=== PATIENT | female | born 1960 | race Caucasian/White ===

== ENCOUNTER → 2019-11-16 12:44 | Outpatient (CLI) | payer OTHER, SELFPAY ==
--- NOTE | ~2019-11-16 | MM_ITS ---
EXAMINATION: MM screening moshe BI w joel HISTORY: Screening TECHNIQUE: Craniocaudal and mediolateral oblique 3-D tomosynthesis images were obtained and synthetic 2-D images were generated. CAD analysis was submitted and interpreted. COMPARISON: No prior mammogram is available for comparison at this institution. BREAST PARENCHYMAL COMPOSITION: There are scattered areas of fibroglandular density. FINDINGS: There is no evidence of suspicious mass, calcification, or architectural distortion to sugg est malignancy in either breast. There has been no suspicious interval change. IMPRESSION: 1. No mammographic evidence of malignancy. 2. Recommend routine screening mammography in one year. BI-RADS Category 1: Negative Reviewed, dictated and finalized at location A.
== END ==
PROVIDERS: PCP Family Medicine; Visit Provider Family Medicine
DX: Z12.31 Encounter for screening mammogram for malignant neoplasm of breast (principal)
CPT/HCPCS: 77063; 77067

== ENCOUNTER 2019-11-19 15:02 | Outpatient (CLI) | payer OTHER, SELFPAY ==
--- NOTE | ~2019-11-19 | US_ITS ---
US thyroid INDICATION: Twain thyroidism TECHNIQUE: Real-time sonographic images of the thyroid gland were obtained. COMPARISON: No prior studies for comparison. FINDINGS: The right thyroid lobe measures 3.8 x 1.6 x 1.9 cm. The left thyroid lobe measures 2.5 x 0 .84 x 0.7 cm. There is heterogeneous echotexture and echogenicity throughout the thyroid gland. No di screte nodules identified. Normal vascular flow is present. IMPRESSION: 1. Mildly heterogeneous thyroid gland without discrete mass. Reviewed, dictated and finalized at location A.
== END 2019-11-19 15:03 | disposition home or self-care (01) ==
PROVIDERS: PCP Family Medicine; Visit Provider Family Medicine
DX: E03.9 Hypothyroidism, unspecified (principal); E04.1 Nontoxic single thyroid nodule
CPT/HCPCS: 76536

== ENCOUNTER 2022-04-07 21:19 | Emergency (ER) | payer BC, SELFPAY ==
--- NOTE | ~2022-04-07 | XR_ITS ---
EXAMINATION: XR chest 2V Exam Date/Time: 04/07/2022 21:46 TOWER TRUCK DRIVER HISTORY: Cp, SOB, CHEST PAIN CENTER OF CHEST 2 WEEKS, HTN Comparison: 09/08/2014. RESULT: Lines, tubes, and devices: Cholecystectomy clips. Lungs and pleura: Clear. Cardiomediastinal silhouette: Stable. Other: No acute osseous or upper abdominal finding. IMPRESSION: No acute cardiopulmonary process. Reviewed, dictated and finalized at location K. R TRUCK DRIVER
--- NOTE | 2022-04-07 21:20 | ECG_ITS ---
Measurements Intervals [place] Rate: 89 P: 24 FL: 135 QRS: -7 QRSD: 83 T: 7 QT: 351 QTc: 428 Interpretive Statements SINUS RHYTHM LOW QRS VOLTAGE IN PRECORDIAL LEADS [QRS DEFLECTION < 1.0 mV IN CHEST LEADS] NO PREVIOUS ECG AVAILABLE FOR COMPARISON Electronically Signed On 04-08-2022 16:00:55 BINGO FLOATER by Pilar Donaldson M.D.
[2022-04-07 21:28] VITALS: BP 176/86; PULSE 93; RESP 18; TEMP 36.6; O2SAT 100
[2022-04-07 22:04] LABS: Basophils Percent Auto 0.3 % (0.2-1.2); Eosinophils Percent Auto 0.5 % (0-4.4); Hematocrit 43.4 % (37.0-47.0); Hemoglobin 14.3 g/dL (12.0-15.0); Immature Granulocyte Absolute 0.02 K/mm3 (0.00-0.031); Immature Granulocyte Percent A 0.3 % (0-0.5); Lymphocytes Absolute Auto 2.09 K/mm3 (0.9-3.2); Lymphocytes Percent Auto 26.7 % (18.3-44.2); Mean Corpuscular HGB Conc 32.9 g/dl (32-36); Mean Corpuscular Hemoglobin 30.6 pg (26-34); Mean Corpuscular Volume 92.7 fl (80-100); Mean Platelet Volume 10.3 fl (7.4-10.4); Monocytes Absolute Auto 0.8 K/mm3 (0.1-0.6); Monocytes Percent Auto 10.4 % (2.6-8.5); Neutrophils Absolute Auto 4.8 K/mm3 (1.3-6.7); Neutrophils Percent Auto 61.8 % (45.5-73.1); Platelet Count Result 323 k/mm3 (150-375); Red Blood Count 4.68 M/mm3 (4.2-5.4); Red Cell Distribution Width 11.8 % (11.5-14.5); White Blood Count 7.8 K/mm3 (4.5-10.0)
[2022-04-07 22:17] LABS: Alanine Aminotransferase 32 U/L (6-35); Alkaline Phosphatase 66 U/L (38-126); Anion Gap 8 mmol/L (8-16); Aspartate Amino Transferase 42 U/L (14-36); Bilirubin,Total 0.7 mg/dL (0.2-1.3); Blood Urea Nitrogen 14 mg/dL (7-17); Calcium 9.8 mg/dL (8.4-10.2); Carbon Dioxide 29 mmol/L (22-30); Chloride 102 mmol/L (98-107); Estimated CRCL calculation 56 ml/min; Estimated Glomerular Filt Rate > 60; Glucose 135 mg/dL (65-110); Lipase 311 U/L (23-300); Potassium 4.3 mmol/L (3.4-5.0); Prothrombin Time 12.8 Seconds (11.1-14.7); Sodium 139 mmol/L (137-145)
[2022-04-07 22:18] LABS: Partial Thromboplastin Time 29.8 SECONDS (22.3-36.8)
[2022-04-07 22:43] VITALS: O2SAT 98
[2022-04-07 22:47] LABS: Troponin I < 0.012 ng/mL (0.000-0.034)
--- NOTE | 2022-04-07 22:57 | ED.CHESTPAIN ---
HPI - Chest Pain General Chief Complaint: Chest Pain Stated Complaint: Chest pain, SOB Time Seen by Provider: 04/07/22 22:38 History of Present Illness HPI narrative: This is a 61-year-old female with past medical history of OR (approximately 12 years ago) who presents to the emergency department complaining of chest pain for the past several days associated with some dyspnea on exertion. Patient states the pain is substernal, described as sharp and pressure-like, without radiation and no consistent aggravating or alleviating factors. She noted the other day after climbing the stairs she had dyspnea and worsening chest pain that improved with rest. She denies any nausea or vomiting or other changes. She states this different and much less intense than her pain experienced with her prior OR. She states she was diagnosed with COVID approximately 2 months ago. Related Data Home Medications Medication Instructions Recorded Confirmed aspirin 81 mg tablet,delayed 81 mg PO DAILY 03/11/21 10/15/21 release (Adult Aspirin Regimen) Allergies Allergy/AdvReac Type Severity Reaction Status Date / Time No Known Allergies Allergy Verified 10/15/21 15:55 Review of Systems Review of Systems: CONSTITUTIONAL: Denies fever, chills, or sweats. EYES: Denies visual changes, redness, or discharge. ENT: Denies rhinorrhea, congestion, sore throat, or otalgia. CARDIOVASCULAR: Chest pain denies palpitations, or edema. RESPIRATORY: Intermittent dyspnea on exertion denies cough GASTROINTESTINAL: Denies abdominal pain, nausea, vomiting, or diarrhea. GENITOURINARY: Denies dysuria or hematuria. SKIN: Denies rash or itching. MUSCULOSKELETAL: Denies back pain, joint pain, or myalgia. NEUROLOGIC: Denies headache, numbness, dizziness, or weakness. PSYCHIATRIC: Denies anxiety or depression. [facility] Past Medical History Medical History (Updated 04/08/22 @ 03:35 by Lawson Gutierrez MD) COVID 12.4.2020 Diverticulitis of colon (without mention of hemorrhage) Essential hypertension Hypothyroidism (acquired) Mixed hyperlipidemia Old myocardial infarction Surgical History Surgical History History of cholecystectomy History of hysterectomy Family History Family History Father Diabetes mellitus Family history of elevated blood lipids Grandparent Family history of elevated blood lipids Mother Family history of elevated blood lipids Other Hypertension Social History Social History Smoking status: Never smoker Alcohol intake: never Exam Narrative: GENERAL: Well-developed, well-nourished, and in no acute distress. HEAD: Normocephalic, atraumatic. EYES: PERRLA and EOMI. ENT: Nares clear, no rhinorrhea or epistaxis. Mucous membranes moist. Oropharynx without tonsillar hypertrophy exudate or other lesions. NECK: Supple. No adenopathy or masses. No carotid bruits or JVD CHEST: Clear to auscultation. No respiratory distress. No wheezes rales or rhonchi HEART: Regular rate and rhythm. No murmur heard. Normal peripheral pulses. ABDOMEN: Soft, nontender, nondistended, normal active bowel sounds. EXTREMITIES: Normal range of motion. No edema. SKIN: Warm, dry, no rash. NEURO: No focal deficits. Alert and oriented x3. PSYCH: Normal mood and affect. Course Course Emergency Course: :23 - CBC unremarkable. Chemistries demonstrate elevated blood glucose of 135 and a slightly elevated lipase of 311. With the patient's recent history of COVID, I obtained a D-dimer; after age-adjustment, it is not concerning for PE (Wells score 1.5 for tachycardia). Troponins negative x2. The patient's HEART score (given her history of OR) is 3. Chest x-ray is not concerning for acute cardiopulmonary process. Shared decision making had with the patient, management options including
[2022-04-07 23:01] VITALS: BP 121/78; PULSE 73; RESP 19; O2SAT 98
[2022-04-07 23:09] LABS: D Dimer 0.63 ug/mL (<0.48)
[2022-04-08 00:59] LABS: Troponin I < 0.012 ng/mL (0.000-0.034)
== END 2022-04-08 01:41 | disposition home or self-care (01) ==
PROVIDERS: Emergency Provider Preventive Medicine Aerospace Medicine; PCP Family Medicine
DX: R07.9 Chest pain, unspecified (principal); I10 Essential (primary) hypertension; I25.2 Old myocardial infarction; E03.9 Hypothyroidism, unspecified; E78.2 Mixed hyperlipidemia; Z86.16 Personal history of COVID-19; Z79.82 Long term (current) use of aspirin; Z90.710 Acquired absence of both cervix and uterus
CPT/HCPCS: 36415; 71046; 80053; 83690; 84484; 85025; 85380; 85610; 85730; 93005; 99284

== ENCOUNTER 2022-04-28 07:34 | Outpatient (CLI) | payer BC, SELFPAY ==
--- NOTE | 2022-04-28 07:46 | ECHO_ITS ---
Patient Info Name: Toya Yun Age: 61 years : 1960 Gender: Female Ht: 64 in Wt: 156 lbs BSA: 1.80 m2 HR: 61 bpm BP: 144 / 103 mmHg Technical Quality: Good Exam Date: 04/28/2022 7:54 AM Exam Location: [facility] Patient Status: Outpatient Admit Date: 04/28/2022 Staff Ordering Physician: Kayla Barros MD Radiology Receptionist: John Cano RDCS, RT Attending Provider: Kayla Barros MD Referring Physician: Papo SILVERIO; Exam Type: CA echo doppler color flow Study Info Indications R07.9 - Chest pain, unspecified Complete two-dimensional, color flow and Doppler transthoracic echocardiogram is performed. Strain analysis performed. Summary 1. Complete two-dimensional, color flow and Doppler transthoracic echocardiogram is performed. 2. Left ventricular chamber dimension is normal. 3. Left ventricular systolic function is normal, estimated at 60-65%. 4. The left ventricular diastolic function is abnormal. 5. E/e' 11 is mildly elevated. 6. Global longitudinal strain is normal at -22.5%. 7. No pulmonary hypertension, estimated pulmonary arterial systolic pressure is 31 mmHg. Left Ventricle E/e' 11 is mildly elevated. Global longitudinal strain is normal at -22.5%. Left ventricular chamber dimension is normal. Left ventricular systolic function is normal, estimated at 60-65%. The left ventricular diastolic function is abnormal. Right Ventricle Right ventricular systolic function is normal and with normal TAPSE 2.5 cm. Right ventricular chamber dimension is normal. Left Atria Left atrial chamber dimension is normal. Right Atria Right atrial chamber dimension is normal. Aortic Valve The aortic valve is trileaflet. There is no aortic valve stenosis. There is no aortic valve regurgitation. Pulmonic Valve There is no pulmonic regurgitation. Mitral Valve There is no mitral valve stenosis. There is no mitral valve regurgitation. Tricuspid Valve There is no tricuspid valve regurgitation. No pulmonary hypertension, estimated pulmonary arterial systolic pressure is 31 mmHg. Pericardium/Pleural There is no pericardial effusion. Inferior Vena Cava Normal inferior vena cava with >50% collapse upon inspiration consistent with normal right atrial pressure, 5 mmHg. Aorta The aortic root size at the sinus of Valsalva is normal. Left Ventricular Outflow Tract Name Value Normal LVOT Doppler LVOT Peak Gradient 4 mmHg LVOT Mean Gradient 2 mmHg LVOT VTI 25 cm LVOT VTI/AV VTI Ratio 0.8 Mitral Valve Name Value Normal MV Doppler MV Decel De [place] 567 cm/s2 MV PHT 58 ms MV Area (PHT) 3.8 cm2 4.0-5.0 MV Diastolic Function MV E Peak Ve
--- NOTE | 2022-04-28 07:47 | EST_ITS ---
Patient Info Name: Toya Yun Age: 61 years : 1960 Gender: Female Ht: 64 in Wt: 156 lbs BSA: 1.80 m2 Exam Date: 04/28/2022 8:49 AM Exam Location: [facility] Patient Status: Outpatient Admit Date: 04/28/2022 Staff Ordering Physician: Kayla Barros MD Finishing Inspector: John Cano RDCS, RT Attending Provider: DR. MARCUS Referring Physician: Papo SILVERIO; Exam Type: CA stress echo Study Info Indications R07.9 - Chest pain, unspecified Summary 1. 1. Negative Ministerio exercise stress test for ischemic ST changes by ECG criteria. 2. 2. Good functional capacity, achieving 8.9 METs of workload. 3. 3. Baseline hypertension. 4. 4. Appropriate HR response to exercise. 5. 5. Appropriate HR recovery at 1 minute post exercise. 6. 6. Negative stress echocardiogram for ischemia by wall motion analysis. 7. 7. Patient informed of the above results. Stress Echo Findings Left Ventricle Appropriate increase in LV endocadial thickening with systole. Appropriate augmentation of contractility with systole. No wall motion abnormality. Left Ventricle Normal LV systolic function, no wall motion abnormality. Protocol: Ministerio Stress ECG Details Stage: REST Duration (min): 0 min : 55 sec Speed (mph): 0.0 Grade (%): 0 HR (bpm): 66 SBP (mmHg): 141 DBP (mmHg): 78 METS: --- Stage: REST Duration (min): 19 min : 57 sec Speed (mph): 0.0 Grade (%): 0 HR (bpm): 71 SBP (mmHg): 141 DBP (mmHg): 78 METS: --- Stage: STAGE 1 Duration (min): 1 min : 0 sec Speed (mph): 1.7 Grade (%): 10 HR (bpm): 95 SBP (mmHg): 141 DBP (mmHg): 78 METS: --- Stage: STAGE 1 Duration (min): 2 min : 0 sec Speed (mph): 1.7 Grade (%): 10 HR (bpm): 101 SBP (mmHg): 141 DBP (mmHg): 78 METS: --- Stage: STAGE 1 Duration (min): 3 min : 0 sec Speed (mph): 1.7 Grade (%): 10 HR (bpm): 111 SBP (mmHg): 180 DBP (mmHg): 91 METS: --- Stage: STAGE 2 Duration (min): 1 min : 0 sec Speed (mph): 2.5 Grade (%): 12 HR (bpm): 125 SBP (mmHg): 180 DBP (mmHg): 91 METS: --- Stage: STAGE 2 Duration (min): 2 min : 0 sec Speed (mph): 2.5 Grade (%): 12 HR (bpm): 135 SBP (mmHg): 195 DBP (mmHg): 90 METS: --- Stage: STAGE 2 Duration (min): 3 min : 0 sec Speed (mph): 2.5 Grade (%): 12 HR (bpm): 139 SBP (mmHg): 195 DBP (mmHg): 90 METS: --- Stage: STAGE 3 Duration (min): 1 min : 0 sec Speed (mph): 3.4 Grade (%): 14 HR (bpm): 147 SBP (mmHg): 192 DBP (mmHg): 106 METS: --- Stage: STAGE 3 Duration (min): 1 min : 1 sec Speed (mph): 0.0 Grade (%): 0 HR (bpm): 147 SBP (mmHg): 192 DBP (mmHg): 106 METS: --- Stage: RECOVERY Duration (min): 0 min : 58 sec Speed (mph): 0.0 Grade (%): 0 HR (bpm): 108 SBP (mmHg): 192 DBP (mmHg): 106 METS: ---
== END 2022-04-28 07:35 | disposition home or self-care (01) ==
LOC: ANHCARD 07:37
PROVIDERS: PCP Family Medicine; Visit Provider Family Medicine
DX: R06.02 Shortness of breath (principal); I25.118 Atherosclerotic heart disease of native coronary artery with other forms of angina pectoris; I25.2 Old myocardial infarction
CPT/HCPCS: 93306; 93351

== ENCOUNTER → 2023-01-19 13:59 | Outpatient (CLI) | payer BC, SELFPAY ==
--- NOTE | ~2023-01-19 | MM_ITS ---
EXAMINATION: MM screening moshe BI w joel HISTORY: Screening mammogram TECHNIQUE: Craniocaudal and mediolateral oblique 3-D tomosynthesis images were obtained and synthetic 2-D images were generated. CAD analysis was submitted and interpreted. COMPARISON: 11/12/2019 bilateral screening mammogram BREAST PARENCHYMAL COMPOSITION: There are scattered areas of fibroglandular density. FINDINGS: There is no evidence of suspicious mass, calcification, or architectural distortion to sugg est malignancy in either breast. There has been no suspicious interval change. IMPRESSION: 1. No mammographic evidence of malignancy. 2. Recommend routine screening mammography in one year. BI-RADS Category 1: Negative Reviewed, dictated and finalized at location A.
== END ==
PROVIDERS: PCP Family Medicine; Visit Provider Family Medicine
DX: Z12.31 Encounter for screening mammogram for malignant neoplasm of breast (principal)
CPT/HCPCS: 77063; 77067

== ENCOUNTER 2023-05-18 12:41 | Outpatient (CLI) | payer BC, SELFPAY ==
[2023-05-18 14:13] LABS: Eosinophils Absolute Auto 0.1 K/mm3 (0-0.3); Eosinophils Percent Auto 1.8 % (0-4.4); Hematocrit 39.6 % (37.0-47.0); Immature Granulocyte Absolute 0.01 K/mm3 (0.00-0.031); Immature Granulocyte Percent A 0.3 % (0-0.5); Lymphocytes Absolute Auto 1.09 K/mm3 (0.9-3.2); Lymphocytes Percent Auto 27.7 % (18.3-44.2); Mean Corpuscular HGB Conc 32.8 g/dl (32-36); Mean Corpuscular Hemoglobin 30.2 pg (26-34); Mean Corpuscular Volume 92.1 fl (80-100); Mean Platelet Volume 10.9 fl (7.4-10.4); Monocytes Absolute Auto 0.6 K/mm3 (0.1-0.6); Monocytes Percent Auto 14.2 % (2.6-8.5); Neutrophils Absolute Auto 2.2 K/mm3 (1.3-6.7); Platelet Count Result 255 k/mm3 (150-375); Red Cell Distribution Width 11.7 % (11.5-14.5); White Blood Count 3.9 K/mm3 (4.5-10.0)
[2023-05-18 15:17] LABS: Vitamin D 25 Hydroxy 54.3 ng/mL
[2023-05-18 15:21] LABS: Anion Gap 11 mmol/L (8-16); Blood Urea Nitrogen 13 mg/dL (7-17); Calcium 9.9 mg/dL (8.4-10.2); Carbon Dioxide 25 mmol/L (22-30); Chloride 101 mmol/L (98-107); Cholesterol 222 mg/dL (0-200); Estimated Glomerular Filt Rate > 60; Glucose 82 mg/dL (65-110); HDL Direct 47 mg/dL; Potassium 5.3 mmol/L (3.4-5.0); Sodium 137 mmol/L (137-145); Triglycerides 126 mg/dL (<150)
[2023-05-18 15:33] LABS: LDL Cholesterol Direct 113 mg/dL
[2023-05-18 15:51] LABS: Thyroid Stimulating Hormone 0.352 uIU/mL (0.465-4.680)
== END 2023-05-18 12:42 | disposition home or self-care (01) ==
LOC: ANHGOSHLAB 12:43
PROVIDERS: PCP Family Medicine; Visit Provider Nurse Practitioner Family
DX: E03.9 Hypothyroidism, unspecified (principal); I10 Essential (primary) hypertension; E78.2 Mixed hyperlipidemia; E55.9 Vitamin D deficiency, unspecified
CPT/HCPCS: 36415; 80048; 80061; 82306; 84443; 85025

== ENCOUNTER 2024-10-10 10:24 | Outpatient (CLI) | payer BC, SELFPAY ==
--- OUTSIDE RECORDS SUMMARY | 2024-10-10 11:52 | XMS_ITS | Referral Summary ---
Author Organization [facility] [place] [address] Address [address] [place] [address] Care Team Providers Care Manager Resort Name Role Phone Kayla Barros MD Primary Care Provider + Allergies No known active allergies Medications aspirin 81 mg enteric coated tablet Take 81 mg by mouth daily Active carvediloL (COREG) 3.125 mg tablet TAKE 1 TABLET BY MOUTH EVERY 12 HOURS WITH FOOD 2 Active levothyroxine (SYNTHROID) 112 mcg tablet Take 112 mcg by mouth daily 2 Active lisinopriL (PRINIVIL,ZESTRIL ) 20 mg tablet Take 20 mg by mouth daily 2 Active naproxen (NAPROSYN) 500 mg tablet Take 500 mg by mouth 2 (two) times a day as needed 9 Active rosuvastatin (CRESTOR) 20 mg tablet Take 20 mg by mouth daily 2 Active traMADoL (ULTRAM) 50 mg tablet Take 50 mg by mouth every 6 (six) hours as needed 9 Active benzonatate (TESSALON) 200 mg capsuleIndication s:Acute non-recurrent pansinusitis Take 1 capsule (200 mg total) by mouth 3 (three) times a day as needed for cough 30 capsule 2 Active Active Problems No known active problems Social History Tobacco Use Types Packs/Day Years Used Date Smoking Tobacco: Never Smokeless Tobacco: Never Tobacco Cessation:Counseling Given: Not Answered Personal Safety Answer Date Recorded Getting School Help Needed Not on file 05/01 Comments Unknown Sex and Gender Information Value Date Recorded Sex Assigned at Not on file Legal Sex Female 5:24 PM CRANE OPERATOR Gender Identity Not on file Sexual Orientation Not on file Last Filed Vital Signs Vital Sign Reading Time Taken Comments Blood Pressure 167/98 03/27/2022 7:19 PM CRANE OPERATOR Pulse 79 03/27/2022 7:19 PM CRANE OPERATOR Temperature 36.8 C (98.3 F) 03/27/2022 7:19 PM CRANE OPERATOR Respiratory Rate 16 03/27/2022 7:19 PM CRANE OPERATOR Oxygen Saturation 99% 03/27/2022 7:19 PM CRANE OPERATOR Inhaled Oxygen Concentration - - Weight 71 kg (156 lb 8 oz) 03/27/2022 7:19 PM CS T Height - - Body Mass Index - - Plan of Treatment Not on file Insurance [employer] PPO [place] Care Teams Manager Resort Relationship Specialty Start Date End Date Kayla Barros MD PCP - General Family Medicine 01/25/17
--- OUTSIDE RECORDS SUMMARY | 2024-10-10 11:52 | XMS_ITS | Clinical Summary ---
Author Organization [facility] Address [address] [place] [address] Phone Care Team Providers Care Sweatband Maker Name Role Phone Kayla Barros MD Primary Care Provider [phone] Allergies No known active allergies Medications carvedilol (COREG) 3.125 MG Tablet Take 3.125 mg by mouth 2 times daily. Active lisinopril (PRINIVIL, ZESTRIL) 20 MG Tablet Take 20 mg by mouth daily. Active levothyroxine (SYNTHROID) 125 MCG Tablet Take 125 mcg by mouth daily. Active rosuvastatin (CRESTOR) 20 MG Tablet Take 20 mg by mouth daily. Active Aspirin 81 MG Tablet Take 81 mg by mouth daily. Active naproxen (NAPROSYN) 500 MG Tablet Take 1 Tab by mouth 2 times daily as needed for Moderate or more severe pain. 20 Tab 08/09/2018 Active traMADol (ULTRAM) 50 MG Tablet Take 1 Tab by mouth every 6 hours as needed for Moderate or more severe pain. 10 Tab 08/09/2018 Active Social History Tobacco Use Types Packs/Day Years Used Date Smoking Tobacco: Never Smokeless Tobacco: Never Alcohol Use Standard Drinks/Week Comments Yes 0 (1 standard drink = 0.6 oz pur e alcohol) Comments No Sex and Gender Information Value Date Recorded Sex Assigned at Not on file Legal Sex Female 11:40 PM CDT Gender Identity Not on file Sexual Orientation Not on file Last Filed Vital Signs Vital Sign Reading Time Taken Comments Blood Pressure 131/74 08/09/2018 3:00 PM CDT Pulse 69 08/09/2018 3:00 PM CDT Temperature 36.6 C (97.8 F) 08/09/2018 1:36 PM CDT Respiratory Rate 16 08/09/2018 3:00 PM CDT Oxygen Saturation 99% 08/09/2018 3:00 PM CDT Inhaled Oxygen Concentration - - Weight 67.1 kg (148 lb) 08/09/2018 1:36 PM CDT Height 162.6 cm (5' 4) 08/09/2018 1:36 PM CDT Body Mass Index 25.4 08/09/2018 1:36 PM CDT Plan of Treatment Health Maintenance Due Date Last Done Comments Hepatitis C Virus (HCV) Screening 1960 TdaP Immunization 1960 Cologuard 2006 Colonoscopy 2006 Colorectal Cancer Screening 2006 Immunochemical Fecal Occult Blood 2006 Pneumococcal Immunization (5 0+ years) (1 of 1 - PCV) 10/04/2011 Zoster Immunization (1 of 2) 10/04/2011 Respiratory Syncytial Virus (RSV) Immunization (Adult) (1 - Risk 60-74 years 1-dose series) 2021 SARS-COV-2 Immunization ( - 2023- season) 2023 Influenza Immunization (Seas on Ended) 2024 04/27/2018 Hepatitis B Immunization Aged Out No longer eligible based on patient's age to complete this topic Human Papillomavirus (HPV) Immunization Aged Out No longer eligible b ased on patient's age to complete this topic Meningococcal Immunization (ACWY) Aged Out No longer eligible based on patient's age to complete this topic Rotavirus Immunization Aged Out No lo nger eligible based on patient's age to complete this topic Insurance [facility] Care Teams Sweatband Maker Relationship Specialty Start Date End Date Kayla Barros MD PCP - General Family Medicine 08/09/18
--- OUTSIDE RECORDS SUMMARY | 2024-10-10 11:52 | XMS_ITS | Clinical Summary ---
Author Organization [facility] [place] [address] Address [address] [place] [address] Care Team Providers Care Medical Assistant Cardiology Name Role Phone Kayla Barros MD Primary [...] on file Legal Sex Female 5:24 PM OFFICE MANAGER Gender Identity Not on file Sexual Orientation Not on file Obstetrics History Last Filed Vital Signs Vital Sign Reading Time Taken Comments Blood Pressure 167/98 03/27/2022 7:19 PM OFFICE MANAGER Pulse 79 03/27/2022 7:19 PM OFFICE MANAGER Temperature 36.8 C (98.3 F) 03/27/2022 7:19 PM OFFICE MANAGER Respiratory Rate 16 03/27/2022 7:19 PM OFFICE MANAGER Oxygen Saturation 99% 03/27/2022 7:19 PM OFFICE MANAGER Inhaled Oxygen Concentration - - Weight 71 kg (156 lb 8 oz) 03/27/2022 7:19 PM CS T Height - - Body Mass Index - - Plan of Treatment Health Maintenance Due Date Last Done Comments Breast Cancer Screening-Mammogram 1960 Cervical Cancer Screening 1960 Colon Cancer Screening-Colonoscopy 1960 Depression Screening 1960 Hepatitis C Screening 1960 Hepatitis B Screening 10/04/1979 Regular Well Visit/Exam 18-64 10/04/1979 Zoster Vaccine (1 of 2) 10/04/2011 Influenza Vaccine (Season Ended) 2024 03/11/2021, 02/29/2020, 04/27/2018 DTaP/Tdap/Td Vaccine (2 - Td or Tdap) 10/16/2031 10/15/2021 Pneumococcal vaccine <65 Aged Out No longer eligible based on patient's age to complete this topic Insurance [employer] [place] Care Teams Medical Assistant Cardiology Relationship Specialty Start Date End Date Kayla Barros MD PCP - General Family Medicine 01/25/17
[2024-10-10 19:19] LABS: Influenza A QL RT-PCR Negative (Negative); Influenza B QL RT-PCR Negative (Negative); RSV RNA, RT-PCR Negative (Negative); SARS-CoV-2 RNA PCR Negative (Negative)
== END 2024-10-10 10:25 | disposition home or self-care (01) ==
LOC: ANHGOSHLAB 10:25
PROVIDERS: PCP Family Medicine; Visit Provider Family Medicine
DX: B34.9 Viral infection, unspecified (principal); Z20.822 Contact with and (suspected) exposure to COVID-19
CPT/HCPCS: 87637

== ENCOUNTER 2024-11-04 15:41 | Emergency (ER) | payer BC, SELFPAY ==
--- NOTE | ~2024-11-04 | CT_ITS ---
CT abdomen pelvis w con Ordering provider: Yadira Castro PA-C History: 64 years Female with . lower abd pain, pressure in RUQ . Comparison: November 20, 2014 Technique: CT abdomen and pelvis with IV and without oral contrast. Automated exposure control and it erative reconstruction technique were employed. The dose-length product was 416.22 mGy-cm. 100 mL Omn ipaque 350 was given IV. Findings: VISUALIZED LOWER CHEST: Normal. UPPER ABDOMINAL ORGANS: Liver: Normal. Slightly prominent intrahepatic ducts. Prominent CBD measuring 1 cm. Gallbladder: Status post cholecystectomy. Spleen: Normal. Stomach/duodenum: Small sliding hiatus hernia. Duodenal diverticulum is seen. Pancreas: Normal. Adrenals: Normal. Kidneys: Multiple left kidney cysts with the largest measures 1.3 cm.] PELVIC ORGANS: The bladder is underfilled with thickened wall. Evaluation for cystitis advised BOWEL AND MESENTERY: Colon: Diverticulitis is seen in the sigmoid colon with surrounding fat stranding. No definite air or abscess formation seen. No evidence of diverticulitis. Small Bowel: Normal. No obstruction. Peritoneum/mesentery: No free air. Minimal free fluid is seen in the left side of the pelvis and righ t paracolic gutter. No mesenteric lymphadenopathy. RETROPERITONEUM: Mild atheromatous disease of the abdominal aorta. No retroperitoneal lymphadenopat hy. MUSCULOSKELETAL: Superficial soft tissues: The superficial soft tissues are normal. Bones: Age appropriate degenerative changes of the spine. IMPRESSION: 1. Diverticulitis of the sigmoid colon with no free air or abscess formation. 2. Sliding hiatus hernia. 3. Left renal cysts. Reviewed, dictated and finalized at location A.
--- OUTSIDE RECORDS SUMMARY | 2024-11-04 15:43 | XMS_ITS | Clinical Summary ---
Author Organization [facility] Address [address] [place] [address] Phone Care Team Providers Care Vocational Rehabilitation Specialist Name Role Phone Kayla Barros MD Primary Care Provider [phone] Allergies No known active allergies Medications carvedilol [...] 60-74 years 1-dose series) 2021 SARS-COV-2 Immunization (1 - 2023- season) 2023 Influenza Immunization (#1) 2024 04/27/2018 Hepatitis B Immunization Aged Out [...] patient's age to complete this topic Insurance [facility] Care Teams Vocational Rehabilitation Specialist Relationship Specialty Start Date End Date Kayla Barros MD PCP - General Family Medicine 08/09/18
[2024-11-04 15:45] VITALS: BP 170/107; PULSE 112; RESP 20; TEMP 36.7; O2SAT 99
[2024-11-04 16:01] LABS: Hematocrit 43.3 % (37.0-47.0); Hemoglobin 14.2 g/dL (12.0-15.0); Immature Granulocyte Percent A 0.3 % (0-0.5); Lymphocytes Absolute Auto 0.82 K/mm3 (0.9-3.2); Mean Corpuscular HGB Conc 32.8 g/dl (32-36); Mean Corpuscular Hemoglobin 30.1 pg (26-34); Mean Corpuscular Volume 91.9 fl (80-100); Nucleated Red Blood Cells Absolute Auto 0.000 K/mm3 (0.0-0.012); Nucleated Red Blood Cells Perc 0.0 % (0.0-0.2); Platelet Count Result 297 k/mm3 (150-375); Red Blood Count 4.71 M/mm3 (4.2-5.4); White Blood Count 11.8 K/mm3 (4.5-10.0)
[2024-11-04 16:04] LABS: Add Urine Microscopic? NO; Appearance Urine Clear (Clear); Glucose Urine UA Negative (Negative); Leukocyte Esterase Ur Negative LEU/UL (Negative); Nitrate Urine Negative (Negative); Specific Grav Ur 1.004 (1.001-1.035)
--- OUTSIDE RECORDS SUMMARY | 2024-11-04 16:04 | XMS_ITS | Clinical Summary ---
Author Organization [facility] Address [address] [place] [address] Phone Care Team Providers Care Paper Cone Maker Name Role Phone Kayla Barros MD Primary Care Provider [phone] Allergies No known active allergies Medications carvedilol [...] age to complete this topic Insurance [facility] Care Teams Paper Cone Maker Relationship Specialty Start Date End Date Kayla Barros MD PCP - General Family Medicine 08/09/18
--- OUTSIDE RECORDS SUMMARY | 2024-11-04 16:04 | XMS_ITS | Clinical Summary ---
Author Organization [facility] [place] [address] Address [address] [place] [address] Care Team Providers Care Head Sugar Reprocess Operator Name Role Phone Kayla Barros MD Primary [...] on file Legal Sex Female 5:24 PM GROOVING MACHINE OPERATOR Gender Identity Not on file Sexual Orientation Not on file Obstetrics History Last Filed Vital Signs Vital Sign Reading Time Taken Comments Blood Pressure 167/98 03/27/2022 7:19 PM GROOVING MACHINE OPERATOR Pulse 79 03/27/2022 7:19 PM GROOVING MACHINE OPERATOR Temperature 36.8 C (98.3 F) 03/27/2022 7:19 PM GROOVING MACHINE OPERATOR Respiratory Rate 16 03/27/2022 7:19 PM GROOVING MACHINE OPERATOR Oxygen Saturation 99% 03/27/2022 7:19 PM GROOVING MACHINE OPERATOR Inhaled Oxygen Concentration - - Weight [...] Vaccine (1 of 2) 10/04/2011 Influenza Vaccine (#1) 2024 1, 02/29/2020, 04/27/2018 DTaP/Tdap/Td Vaccine (2 - Td or Tdap) 10/16/2031 10/15/2021 Pneumococcal vaccine <65 Aged Out No longer eligible based on patient's age to complete this topic Insurance [employer] [place] Care Teams Head Sugar Reprocess Operator Relationship Specialty Start Date End Date Kayla Barros MD PCP - General Family Medicine 01/25/17
--- OUTSIDE RECORDS SUMMARY | 2024-11-04 16:04 | XMS_ITS | Referral Summary ---
Author Organization [facility] [place] [address] Address [address] [place] [address] Care Team Providers Care Senior Chemical Engineer Name Role Phone Kayla Barros MD Primary [...] on file Legal Sex Female 5:24 PM TERMINAL CLERK Gender Identity Not on file Sexual Orientation Not on file Last Filed Vital Signs Vital Sign Reading Time Taken Comments Blood Pressure 167/98 03/27/2022 7:19 PM TERMINAL CLERK Pulse 79 03/27/2022 7:19 PM TERMINAL CLERK Temperature 36.8 C (98.3 F) 03/27/2022 7:19 PM TERMINAL CLERK Respiratory Rate 16 03/27/2022 7:19 PM TERMINAL CLERK Oxygen Saturation 99% 03/27/2022 7:19 PM TERMINAL CLERK Inhaled Oxygen Concentration - - Weight 71 kg (156 lb 8 oz) 03/27/2022 7:19 PM CS T Height - - Body Mass Index - - Plan of Treatment Not on file Insurance [employer] [place] Care Teams Senior Chemical Engineer Relationship Specialty Start Date End Date Kayla Barros MD PCP - General Family Medicine 01/25/17
[2024-11-04 16:19] LABS: Alanine Aminotransferase 29 U/L (6-35); Albumin Level 4.9 g/dL (3.5-5.1); Alkaline Phosphatase 59 U/L (38-126); Anion Gap 12 mmol/L (4-12); Aspartate Amino Transferase 41 U/L (14-36); Bilirubin,Total 1.0 mg/dL (0.2-1.3); Blood Urea Nitrogen 9 mg/dL (7-17); Calcium 10.4 mg/dL (8.4-10.2); Carbon Dioxide 27 mmol/L (22-30); Chloride 98 mmol/L (98-107); Estimated CRCL calculation 51 ml/min; Estimated Glomerular Filt Rate 58; Glucose 115 mg/dL (65-110); Lipase 153 U/L (23-300); Potassium 4.2 mmol/L (3.4-5.0); Sodium 137 mmol/L (137-145); Total Protein 9.2 g/dL (6.3-8.2)
[2024-11-04 16:25] VITALS: PULSE 85; RESP 14; O2SAT 98
[2024-11-04 16:30] VITALS: BP 117/80; PULSE 78; RESP 13; O2SAT 98
[2024-11-04 16:31] VITALS: PULSE 79; RESP 14; O2SAT 100
--- NOTE | 2024-11-04 16:36 | ECG_ITS ---
Test Date: 2024-11-04 16:54:27 Measurements Intervals [place] Rate: 78 P: -3 ME: 149 QRS: 9 QRSD: 87 T: 8 QT: 368 QTc: 421 Interpretive Statements SINUS RHYTHM No previous ECG available for comparison Electronically Signed On 11-05-2024 15:51:53 CDT by Wilbur Valdez M.D.
[2024-11-04 16:55] VITALS: BP 120/73; PULSE 78; RESP 17; O2SAT 99
[2024-11-04 17:07] LABS: INR 0.9; Prothrombin Time 12.5 Seconds (11.1-14.7)
[2024-11-04 17:08] LABS: Partial Thromboplastin Time 28.0 Seconds (22.3-36.8)
--- NOTE | 2024-11-04 17:23 | ED_ITS ---
HPI - Abdominal Pain General Chief Complaint: Abdominal Pain Stated Complaint: RUQ pressure Time Seen by Provider: 11/04/24 15:57 Source: patient Mode of arrival: ambulatory Limitations: no limitations History of Present Illness HPI narrative: Patient is a 64-year-old female, with PMH of cholecystectomy, who presents the ED with report of abdominal pain. Patient reports over the past 4 weeks, she has been having pressure throughout her right upper abdomen, below her R breast. Denies actual pain. States it is fairly constant, but seems to be worse with eating or drinking. Denies shortness of breath or anterior chest pain. She was evaluated for this a few weeks ago while on vacation in [place] and had an overall reassuring workup, but was told she had diverticulitis and was started on Augmentin for this. She does have history of previous diverticulitis. States this pressure has been consistent since then. This morning around 3:00 a.m., she woke up with pain throughout her lower abdomen. Does state this feels similar to her previous diverticulitis. Reports loose stool, but denies diarrhea, rectal bleeding, melena, constipation, nausea, vomiting, fevers. Denies dysuria, hematuria, frequency. Related Data Home Medications ?Medication ?Instructions ?Recorded ?Confirmed ?Last Taken ?Type aspirin 81 mg tablet,delayed 81 mg PO DAILY 03/11/21 10/10/24 Unknown History release (Adult Aspirin Regimen) Allergies Allergy/AdvReac Type Severity Reaction Status Date / Time No Known Allergies Allergy Verified 11/04/24 15:52 Review of Systems 2 Review of Systems: All systems reviewed & are unremarkable except as noted in HPI. All systems reviewed & are unremarkable except as noted in HPI and below PMFSH Past Medical History Medical History Atypical chest pain COVID 12.4.2020 Diverticulitis of colon (without mention of hemorrhage) Essential hypertension Mixed hyperlipidemia Old myocardial infarction Hypothyroidism (acquired) Surgical History Surgical History History of hysterectomy History of cholecystectomy Family History Family History Father Diabetes mellitus Family history of elevated blood lipids Grandparent Family history of elevated blood lipids Mother Family history of elevated blood lipids Other Hypertension Social History Social History Smoking status: Never smoker Alcohol intake: current Drinks per week: 1 Substance use: never Substance use type: does not use Do You Feel Safe in your Home?: Yes Lack of Transportation: No Lack of Food: Never True Current Housing: I Have Housing Concerned About Future Housing: No Difficulty Paying Gas/Electric Bills: No Difficulty Paying for Meds: No Currently Unemployed: No Education: High School Diploma/GED Difficulty w/ Childcare or Family Care: No Exam 2 Narrative: GENERAL: Well appearing, well-nourished, non-toxic, in no acute distress. HEAD: Normocephalic, atraumatic. RESPIRATORY: Airway patent, respirations nonlabored. Clear to auscultation bilaterally, no rales, rhonchi, wheezing. CARDIOVASCULAR: Regular rate and rhythm without murmurs, rubs, or gallops. ABDOMINAL: Soft, mild diffuse tenderness throughout left lower quadrant, suprapubic region, left upper quadrant, nondistended. Normoactive BS. MUSCULOSKELETAL: Moves all extremities. No gross deformities. No significant reproducible tenderness along right upper chest wall. SKIN: Warm, dry, normal color. NEURO: A&O X3. Speech clear. Cranial nerves II-XII grossly intact. Steady gait. No ataxic movements. PSYCHIATRIC: Appropriate mood and affect. Normal interaction. Course Vital Signs Vital signs: Vital Signs Temperature 98.0 F 11/04/24 15:45 Pulse Rate 112 H 11/04/24 15:45 Respiratory Rate 20 11/04/24 15:45 Blood Pressure 170/107 H 11/04/24 15:45 Pulse Oximetry 99 11/04/24 15:45 Oxygen Delivery Room Air 11/04/24 15:45 Temperature 98.0 F 11/04/24 15:45 Pulse Rate 74 11/04/24 18:21 Respiratory Rate 20 11/04/24 18:21 Blood Pressure 103/67 11/04/24 18:21 Pulse Oximetry 100 11/04/24 18:21 Oxygen Delivery Room Air 11/04/24 15:45 MDM - Abdominal Pain MDM Narrative Medical decision making narrative: Patient presented to ED with lower abdominal pain that began this morning, history of previous diverticulitis, also reports pressure in right upper quadrant, right breast region for the past 4 weeks. Patient was initially tachycardic upon arrival to the ED, however this was improved by the time of my evaluation. She is afebrile here. In no acute distress. Cbc with white blood cell count of 11.8. Neutrophil predominance. No bandemia. CMP fairly unremarkable. Stable kidney function. Stable electrolytes. Normal LFTs and lipase. EKG with sinus rhythm, no concerning ST changes. Troponin undetectable. D-dimer was within normal range. Suspicion for PE. UA is completely clear. CT scan of abdomen/pelvis was obtained and shows evidence of diverticulitis of sigmoid colon, no perforation or abscess. Consistent with clinical picture. Discussed lab and imaging findings with patient. Discussed starting on Cipro/Flagyl. She is in agreement this plan. Feels comfortable going home. Offered pain medication for home, however patient politely declined. Recommended close follow-up with PCP for further evaluation of diverticulitis as well as right upper quadrant pain. Unclear etiology of this, but no concerning findings on workup here today. Given strict return precautions. Patient voiced understanding. Discharged in stable condition. Medical Records Attestation: I reviewed the patient's medical records. Lab Data Attestation: I reviewed the patient's lab results. 11/04/24 15:54 11/04/24 15:54 Labs: Lab Results 11/04/24 Range/Units 15:54 WBC 11.8 H (4.5-10.0) K/mm3 RBC 4.71 (4.2-5.4) M/mm3 Hgb 14.2 (12.0-15.0) g/dL Hct 43.3 (37.0-47.0) % MCV 91.9 (80-100) fl MCH 30.1 (26-34) pg MCHC 32.8 (32-36) g/dl RDW 11.9 (11.5-14.5) % Plt Count 297 (150-375) k/mm3 MPV 10.5 H (7.4-10.4) fl Immature Gran % (Auto) 0.3 (0-0.5) % Neut % (Auto) 83.4 H (45.5-73.1) % Lymph % (Auto) 6.9 L (18.3-44.2) % [place] % (Auto) 9.1 H (2.6-8.5) % Eos % (Auto) 0.2 (0-4.4) % Baso % (Auto) 0.1 L (0.2-1.2) % Lymph # (Auto) 0.82 L (0.9-3.2) K/mm3 [place] # (Auto) 1.1 H (0.1-0.6) K/mm3 Eos # (Auto) 0.0 (0-0.3) K/mm3 Baso # (Auto) 0.0 (0.0-0.1) K/mm3 Abs Immat Gran (auto) 0.04 H (0.00-0.031) K/mm3 Absolute Neuts (auto) 9.9 H (1.3-6.7) K/mm3 Absolute Nucleated RBC 0.000 (0.0-0.012) K/mm3 Nucleated RBC % 0.0 (0.0-0.2) % PT 12.5 (11.1-14.7) Seconds INR 0.9 APTT 28.0 (22.3-36.8) Seconds D-Dimer 0.44 (<0.48) ug/mL Sodium 137 (137-145) mmol/L Potassium 4.2 (3.4-5.0) mmol/L Chloride 98 (98-107) mmol/L Carbon Dioxide 27 (22-30) mmol/L Anion Gap 12 (4-12) mmol/L BUN 9 (7-17) mg/dL Creatinine 0.97 (0.7-1.0) mg/dL Estim Creat Clear Calc 51 ml/min Estimated GFR 58 L (59 - ) Glucose 115 H (65-110) mg/dL Calcium 10.4 H (8.4-10.2) mg/dL Total Bilirubin 1.0 (0.2-1.3) mg/dL AST 41 H (14-36) U/L ALT 29 (6-35) U/L Alkaline Phosphatase 59 (38-126) U/L Troponin I < 0.012 (0.000-0.034) ng/mL Total Protein 9.2 H (6.3-8.2) g/dL Albumin 4.9 (3.5-5.1) g/dL Lipase 153 (23-300) U/L Urine Color Yellow (Yellow) Urine Appearance Clear (Clear) Urine pH 5.5 (5.0-9.0) Ur Specific [place] 1.004 (1.001-1.035) Urine Protein Negative (Negative) mg/dL Urine Glucose (UA) Negative (Negative) mg/dL Urine Ketones Negative (Negative) mg/dL Ur Blood (Man) Negative (Negative) Urine Nitrate Negative (Negative) Urine Bilirubin Negative (Negative) Urine Urobilinogen 0.2 (<2.0) mg/dL Leukocyte Esterase Rfl Negative (Negative) LILIA/UL Imaging Data Attestation: I personally reviewed and interpreted this imaging study as follows: Radiologist's impression: ITS Impressions Abdomen/Pelvis CT 11/04/24 20:07 IMPRESSION: 1. Diverticulitis of the sigmoid colon with no free air or abscess formation. 2. Sliding hiatus hernia. 3. Left renal cysts. ECG Data EKG #1: Attestation: I personally reviewed and interpreted this ECG as follows: ECG completion date: 11/04/24 ECG completion time: 16:54 normal rate (78), sinus rhythm and no ST changes Discharge Plan Discharge Clinical Impression: Diverticulitis of sigmoid colon, Right upper quadrant abdominal pain Patient Disposition: Home Condition: Stable Instructions: Antibiotic Form, Diverticulitis (ED), Diverticulitis Diet (ED), Abdominal Pain (ED) Additional Instructions: Take antibiotics as prescribed for diverticulitis. Do not drink alcohol while taking metronidazole/Flagyl as this can cause a vomiting reaction. Follow-up with your primary care doctor for further evaluation. Recommend Tylenol, ibuprofen as needed for pain. Return to the ED if you experience worsening or severe pain, rectal bleeding, dark black stools, unable to keep down food or drink, persistent fevers, difficulty breathing, or any other symptoms of concern. Patient Language: Italian Prescriptions: New metronidazole 500 mg tablet 500 mg PO Q8H 7 Days Qty: 21 0RF ciprofloxacin HCl 500 mg tablet 500 mg PO Q12H 7 Days Qty: 14 0RF No Action aspirin [Adult Aspirin Regimen] 81 mg tablet,delayed release (DR/EC) 81 mg PO DAILY lisinopril 20 mg tablet See Rx Instructions .ROUTE .COMPLEX Qty: 90 1RF Dose Instruction: Take 1 tablet by mouth once daily Rx Instructions: Take 1 tablet by mouth once daily rosuvastatin 20 mg tablet See Rx Instructions .ROUTE .COMPLEX Qty: 90 1RF Dose Instruction: Take 1 tablet by mouth once daily Rx Instructions: Take 1 tablet by mouth once daily carvedilol 3.125 mg tablet See Rx Instructions .ROUTE .COMPLEX Qty: 180 1RF Dose Instruction: TAKE 1 TABLET BY MOUTH EVERY 12 HOURS WITH FOOD Rx Instructions: TAKE 1 TABLET BY MOUTH EVERY 12 HOURS WITH FOOD levothyroxine 100 mcg tablet 100 mcg PO DAILY Qty: 90 1RF Follow-up/Referrals: Kayla Barros MD [Primary Care Provider] - Time of Disposition: 21:03
[2024-11-04 18:00] LABS: Troponin I < 0.012 ng/mL (0.000-0.034)
[2024-11-04 18:21] VITALS: BP 103/67; PULSE 74; RESP 20; O2SAT 100
[2024-11-04] MEDS: ACETAMINOPHEN 500 MG TABLET 1000 MG PO (19:46)
[2024-11-04] MEDS: CIPROFLOXACIN 500 MG TAB PO (21:33)
== END 2024-11-04 21:40 | disposition home or self-care (01) ==
PROVIDERS: Emergency Medicine; Emergency Provider Physician Assistant; PCP Family Medicine
DX: K57.32 Diverticulitis of large intestine without perforation or abscess without bleeding (principal); R10.11 Right upper quadrant pain; I10 Essential (primary) hypertension; I25.2 Old myocardial infarction; E78.2 Mixed hyperlipidemia; E03.9 Hypothyroidism, unspecified; Z86.16 Personal history of COVID-19; Z90.710 Acquired absence of both cervix and uterus; Z90.49 Acquired absence of other specified parts of digestive tract; N28.1 Cyst of kidney, acquired; K44.9 Diaphragmatic hernia without obstruction or gangrene
CPT/HCPCS: 36415; 74177; 80053; 81003; 83690; 84484; 85025; 85380; 85610; 85730; 93005; 99284; A9270; Q9967

== ENCOUNTER 2025-01-28 09:33 | Outpatient (CLI) | payer BC, SELFPAY ==
--- OUTSIDE RECORDS SUMMARY | 2025-01-28 10:26 | XMS_ITS | Clinical Summary ---
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 Gender Identity Not on file Sexual Orientation Not on file Obstetrics History Last Filed Vital Signs Vital Sign Reading Time Taken Comments Blood Pressure 167/98 03/27/2022 7:19 PM MOWING MACHINE OPERATOR Pulse 79 03/27/2022 7:19 PM MOWING MACHINE OPERATOR Temperature 36.8 C (98.3 F) 03/27/2022 7:19 PM MOWING MACHINE OPERATOR Respiratory Rate 16 03/27/2022 7:19 PM MOWING MACHINE OPERATOR Oxygen Saturation 99% 03/27/2022 7:19 PM MOWING MACHINE OPERATOR Inhaled Oxygen Concentration - - [...] BL CHOICE PRF PPO [place] Care Teams Acute Care Surgeon Relationship Specialty Start Date End Date Kayla Barros MD PCP - General Family Medicine 01/25/17
--- OUTSIDE RECORDS SUMMARY | 2025-01-28 10:26 | XMS_ITS | Clinical Summary ---
Author Organization [facility] Address [address] [place] [address] Phone Care Team Providers Care Financial Foundations Representative Name Role Phone Kayla Barros MD Primary Care Provider [phone] Allergies No known active allergies Medications carvedilol [...] - Risk 60-74 years 1-dose series) 2021 Influenza Immunization (#1) 2024 04/27/2018 SARS-COV-2 Immunization (1 - season) 2024 Hepatitis B Immunization Aged Out No longer [...] patient's age to complete this topic Insurance [facility] Care Teams Financial Foundations Representative Relationship Specialty Start Date End Date Kayla Barros MD PCP - General Family Medicine 08/09/18
[2025-01-28 13:01] LABS: Alanine Aminotransferase 37 U/L (6-35); Albumin Level 4.5 g/dL (3.5-5.1); Alkaline Phosphatase 59 U/L (38-126); Anion Gap 7 mmol/L (4-12); Aspartate Amino Transferase 86 U/L (14-36); Bilirubin,Total 0.7 mg/dL (0.2-1.3); Blood Urea Nitrogen 11 mg/dL (7-17); Calcium 9.9 mg/dL (8.4-10.2); Carbon Dioxide 29 mmol/L (22-30); Chloride 102 mmol/L (98-107); Cholesterol 185 mg/dL (0-200); Estimated Glomerular Filt Rate > 60; Glucose 108 mg/dL (65-110); HDL Direct 64 mg/dL; Potassium 5.2 mmol/L (3.4-5.0); Sodium 138 mmol/L (137-145); Total Protein 8.3 g/dL (6.3-8.2); Triglycerides 99 mg/dL (<150)
[2025-01-28 13:27] LABS: Hemoglobin A1C 5.8 % (<5.7)
[2025-01-28 13:37] LABS: Thyroid Stimulating Hormone 0.964 uIU/mL (0.465-4.680)
== END 2025-01-28 09:34 | disposition home or self-care (01) ==
LOC: ANHGOSHLAB 09:34
PROVIDERS: PCP Family Medicine; Visit Provider Family Medicine
DX: R73.03 Prediabetes (principal); E78.2 Mixed hyperlipidemia; E55.9 Vitamin D deficiency, unspecified; E03.9 Hypothyroidism, unspecified
CPT/HCPCS: 36415; 80053; 80061; 82306; 83036; 84443

== ENCOUNTER 2025-02-07 10:07 | Outpatient (CLI) | payer BC, SELFPAY ==
--- NOTE | 2025-02-07 10:09 | EST_ITS ---
Patient Info Name: Tyoa Yun Age: 64 years : 1960 Gender: Female Ht: 63 in Wt: 163 lbs BSA: 1.84 m2 HR: 69 bpm BP: 121 / 76 mmHg Exam Date: 02/07/2025 10:09 AM Patient Status: O Admit Date: 02/07/2025 Exam Type: CA stress test treadmill A treadmill exercise stress test was performed. Staff Attending Provider: Kayla Barros MD Exercise Technologist: Antoinette Ybarra Exercise Physician: Wilver Cassidy DO Summary 1. 1. Negative Ministerio exercise stress test for ischemic ST changes by ECG criteria. 2. 2. Good functional capacity, achieving 10 METs of workload. 3. 3. Appropriate HR response to exercise. 4. 4. Appropriate HR recovery at 1 minute post exercise. 5. 5. No imaging with stress testing. 6. 6. Patient informed of the above results. Protocol: Ministerio Stress ECG Details Stage: REST Duration (min): 0 min : 53 sec Speed (mph): 0.0 Grade (%): 0 HR (bpm): 69 SBP (mmHg): 121 DBP (mmHg): 76 METS: --- Stage: REST Duration (min): 7 min : 25 sec Speed (mph): 0.0 Grade (%): 0 HR (bpm): 80 SBP (mmHg): 121 DBP (mmHg): 76 METS: --- Stage: STAGE 1 Duration (min): 1 min : 0 sec Speed (mph): 1.7 Grade (%): 10 HR (bpm): 103 SBP (mmHg): 121 DBP (mmHg): 76 METS: --- Stage: STAGE 1 Duration (min): 2 min : 0 sec Speed (mph): 1.7 Grade (%): 10 HR (bpm): 114 SBP (mmHg): 121 DBP (mmHg): 76 METS: --- Stage: STAGE 1 Duration (min): 3 min : 0 sec Speed (mph): 1.7 Grade (%): 10 HR (bpm): 112 SBP (mmHg): 134 DBP (mmHg): 81 METS: --- Stage: STAGE 2 Duration (min): 1 min : 0 sec Speed (mph): 2.5 Grade (%): 12 HR (bpm): 122 SBP (mmHg): 134 DBP (mmHg): 81 METS: --- Stage: STAGE 2 Duration (min): 2 min : 0 sec Speed (mph): 2.5 Grade (%): 12 HR (bpm): 121 SBP (mmHg): 166 DBP (mmHg): 99 METS: --- Stage: STAGE 2 Duration (min): 3 min : 0 sec Speed (mph): 2.5 Grade (%): 12 HR (bpm): 122 SBP (mmHg): 166 DBP (mmHg): 99 METS: --- Stage: STAGE 3 Duration (min): 1 min : 0 sec Speed (mph): 3.4 Grade (%): 14 HR (bpm): --- SBP (mmHg): 166 DBP (mmHg): 99 METS: --- Stage: STAGE 3 Duration (min): 2 min : 0 sec Speed (mph): 3.4 Grade (%): 14 HR (bpm): 143 SBP (mmHg): 204 DBP (mmHg): 58 METS: --- Stage: STAGE 3 Duration (min): 2 min : 0 sec Speed (mph): 3.4 Grade (%): 14 HR (bpm): 136 SBP (mmHg): 204 DBP (mmHg): 58 METS: --- Stage: RECOVERY Duration (min): 0 min : 59 sec Speed (mph): 0.0 Grade (%): 0 HR (bpm): 115 SBP (mmHg): 204 DBP (mmHg): 58 METS: --- Stage: RECOVERY Duration (min): 1 min : 59 sec Speed (mph): 0.0 Grade (%): 0 HR (bpm): 103 SBP (mmHg): 160 DBP (mmHg): 65 METS: --- Stage: RECOVERY Duration (min): 2 min : 59 sec Speed (mph): 0.0 Grade (%): 0 HR (bpm): 96 SBP (mmHg): 160 DBP (mmHg): 65 METS: --- Stage: RECOVERY Duration (min): 3 min : 59 sec Speed (mph): 0.0 Grade (%): 0 HR (bpm): 88 SBP (mmHg): 160 DBP (mmHg): 65 METS: --- Stage: RECOVERY Duration (min): 4 min : 59 sec Speed (mph): 0.0 Grade (%): 0 HR (bpm): 87 SBP (mmHg): 125 DBP (mmHg): 78 METS: --- Stage: RECOVERY Duration (min): 5 min : 3 sec Speed (mph): 0.0 Grade (%): 0 HR (bpm): 85 SBP (mmHg): 125 DBP (mmHg): 78 METS: --- Rest HR: 80 bpm Peak HR: 144 bpm Rest Sys BP: 121 mmHg Peak Sys BP: 204 mmHg Max Pred HR: 157 bpm % Max Pred HR: 92 % Target HR: 133 bpm Max RPP: 29,376 bpm*mmHg Barragan Score: 4 Termination Reason: Reached target heart rate or workload Cardiac Symptoms: Shortness of breath Max ST Seg Deviation: -0.90 mm Total Time: 8 min : 0 sec Rest Tomlinson BP: 76 mmHg Peak Tomlinson BP: 58 mmHg Angina Score: None Total METS: 10.3 Resting ECG Sinus rhythm. Stress ECG No ST changes. Arrhythmias None. Report Signatures
--- OUTSIDE RECORDS SUMMARY | 2025-02-07 11:30 | XMS_ITS | Clinical Summary ---
Author Organization [facility] Address [address] [place] [address] Phone Care Team Providers Care It Programmer Analyst Name Role Phone Kayla Barros MD Primary Care Provider [phone] Allergies No known active allergies Medications carvedilol [...] patient's age to complete this topic Insurance [facility] Care Teams It Programmer Analyst Relationship Specialty Start Date End Date Kayla Barros MD PCP - General Family Medicine 08/09/18
--- OUTSIDE RECORDS SUMMARY | 2025-02-07 11:30 | XMS_ITS | Clinical Summary ---
Author Organization [facility] [place] [address] Address [address] [place] [address] Care Team Providers Care Director News Name Role Phone Kayla Barros MD Primary [...] on file Legal Sex Female 5:24 PM TOOL AND DIE MAKER LEVEL FIVE Gender Identity Not on file Sexual Orientation Not on file Obstetrics History Last Filed Vital Signs Vital Sign Reading Time Taken Comments Blood Pressure 167/98 03/27/2022 7:19 PM TOOL AND DIE MAKER LEVEL FIVE Pulse 79 03/27/2022 7:19 PM TOOL AND DIE MAKER LEVEL FIVE Temperature 36.8 C (98.3 F) 03/27/2022 7:19 PM TOOL AND DIE MAKER LEVEL FIVE Respiratory Rate 16 03/27/2022 7:19 PM TOOL AND DIE MAKER LEVEL FIVE Oxygen Saturation 99% 03/27/2022 7:19 PM TOOL AND DIE MAKER LEVEL FIVE Inhaled Oxygen Concentration - - Weight 71 [...] BL CHOICE PRF [place] Care Teams Director News Relationship Specialty Start Date End Date Kayla Barros MD PCP - General Family Medicine 01/25/17
== END 2025-02-07 10:08 | disposition home or self-care (01) ==
LOC: ANHCARD 10:08
PROVIDERS: PCP Family Medicine; Visit Provider Family Medicine
DX: R68.89 Other general symptoms and signs (principal); I25.118 Atherosclerotic heart disease of native coronary artery with other forms of angina pectoris
CPT/HCPCS: 93017

== ENCOUNTER 2025-02-14 10:48 | Outpatient (CLI) | payer BC, SELFPAY ==
--- OUTSIDE RECORDS SUMMARY | 2025-02-14 11:55 | XMS_ITS | Clinical Summary ---
Author Organization [facility] Address [address] [place] [address] Phone Care Team Providers Care Experimental Plastics Fabricator Name Role Phone Kayla Barros MD Primary Care Provider [phone] Allergies No known active allergies Medications carvedilol [...] patient's age to complete this topic Insurance [facility] Care Teams Experimental Plastics Fabricator Relationship Specialty Start Date End Date Kayla Barros MD PCP - General Family Medicine 08/09/18
--- OUTSIDE RECORDS SUMMARY | 2025-02-14 11:55 | XMS_ITS | Clinical Summary ---
Author Organization [facility] [place] [address] Address [address] [place] [address] Care Team Providers Care Election Assistant Name Role Phone Kayla Barros MD Primary [...] on file Legal Sex Female 5:24 PM CIRCUS RIDER Gender Identity Not on file Sexual Orientation Not on file Obstetrics History Last Filed Vital Signs Vital Sign Reading Time Taken Comments Blood Pressure 167/98 03/27/2022 7:19 PM CIRCUS RIDER Pulse 79 03/27/2022 7:19 PM CIRCUS RIDER Temperature 36.8 C (98.3 F) 03/27/2022 7:19 PM CIRCUS RIDER Respiratory Rate 16 03/27/2022 7:19 PM CIRCUS RIDER Oxygen Saturation 99% 03/27/2022 7:19 PM CIRCUS RIDER Inhaled Oxygen Concentration - - Weight 71 [...] BL CHOICE PRF [place] Care Teams Election Assistant Relationship Specialty Start Date End Date Kayla Barros MD PCP - General Family Medicine 01/25/17
[2025-02-14 18:59] LABS: Alanine Aminotransferase 18 U/L (6-35); Albumin Level 4.4 g/dL (3.5-5.1); Alkaline Phosphatase 59 U/L (38-126); Anion Gap 8 mmol/L (4-12); Aspartate Amino Transferase 47 U/L (14-36); Bilirubin,Total 0.5 mg/dL (0.2-1.3); Blood Urea Nitrogen 16 mg/dL (7-17); Calcium 9.5 mg/dL (8.4-10.2); Carbon Dioxide 26 mmol/L (22-30); Chloride 103 mmol/L (98-107); Estimated Glomerular Filt Rate > 60; Glucose 78 mg/dL (65-110); Potassium 4.7 mmol/L (3.4-5.0); Sodium 137 mmol/L (137-145); Total Protein 8.0 g/dL (6.3-8.2)
== END 2025-02-14 10:49 | disposition home or self-care (01) ==
LOC: ANHGOSHLAB 10:49
PROVIDERS: PCP Family Medicine; Visit Provider Family Medicine
DX: R79.89 Other specified abnormal findings of blood chemistry (principal)
CPT/HCPCS: 36415; 80053

== ENCOUNTER 2025-04-04 07:46 | Outpatient (CLI) | payer BC, SELFPAY ==
--- NOTE | 2025-05-06 12:11 | WPDSLEEPSTUD ---
Sleep Study Date of Study: 04/04/25 Ordering Provider: Michael Cruz APRN Interpreting Physician: Terri Leblanc MD Sleep Study Type: Polysomnogram Height: 1.63 m Weight: 74.843 kg Body Mass Index: 28.3 Neck Circumference (inches): 15 Runnells: 10 Reason for Sleep Study Hypersomnolence Sleep History Toya Yun is a 64-year-old woman with snoring, elevated morning blood pressure an constant fatigue. She was diagnosed with obstructive sleep apnea 30-35 years ago. She had her tonsils removed. At the time she decided not to use CPAP but now with increasing daytime dysfunction she is interested in CPAP treatment if needed. She never awakens from sleep short of breath. She frequently wakes at night with heartburn, belching or coughing.??She frequently snores loudly enough that others complain. She constantly has trouble sleeping when she has a cold. She occasionally wakes up gasping for breath during the night. She never has breathing problems at night reported to her by others. She frequently sweats excessively at night. She occasionally notices her heart pounding or beating irregularly during the night. She rarely falls asleep during the day. She never falls asleep involuntarily, never falls asleep while driving. She never experiences loss of muscle tone with strong emotion. She never feels paralyzed on waking or falling asleep. She rarely experiences vivid dreams upon waking or falling asleep. She never feels afraid of going to sleep. She rarely has nightmares. She frequently recalls her dreams. She frequently has thoughts racing through her mind. She rarely feels sad or depressed. She constantly feels anxiety. She occasionally notices parts of her body jerk. She rarely kicks during the night. She frequently feels crawling or aching feelings in her legs. She rarely feels leg pain at night. She never has morning jaw pain, although she frequently grinds her teeth at night. She occasionally feels bothered by pain during the day, is never awakened by pain during the night. She frequently wakes up feeling stiff in the morning, never wakes feeling sore or achy in the morning. She never awakens with pain in her neck, spine, or joints. Normal bedtime is between 8:30 p.m. and 9:00 p.m., falling asleep within 30 minutes, waking every hour and half to 2 hours during the night to urinate. She wakes at 6:30 a.m., reports getting between 5 and 6 hours of sleep per night. she does not take naps in the afternoon or evening. A short nap lasting 10-15 minutes is not refreshing. She is drowsy for 1 hour after waking. She feels better in the morning compared to other times of day. Habits:??Tobacco: Never smoker Caffeine: 1 serving per day Alcohol: none Recreational substances: none [facility] Past Medical History Medical History Atypical chest pain COVID 12. Diverticulitis of colon (without mention of hemorrhage) Essential hypertension Mixed hyperlipidemia Old myocardial infarction Hypothyroidism (acquired) Surgical History Surgical History History of hysterectomy History of cholecystectomy Family History Family History Father Diabetes mellitus Family history of elevated blood lipids Grandparent Family history of elevated blood lipids Mother Family history of elevated blood lipids Other Hypertension Social History Social History Smoking status: Never smoker Alcohol intake: current Alcohol use details: maybe once a month Substance use: never Substance use type: does not use Lack of Transportation: No Lack of Food: Never True Current Housing: I Have Housing Concerned About Future Housing: No Difficulty Paying Gas/Electric Bills: No Difficulty Paying for Meds: No Currently Unemployed: No Education: High School Diploma/GED Difficulty w/ Childcare or Family Care: No Medications Home Medications ?Medication ?Instructions ?Recorded ?Confirmed ?Type aspirin 81 mg tablet,delayed 81 mg PO DAILY 03/11/21 04/12/25 History release (Adult Aspirin Regimen) rosuvastatin 20 mg tablet See Rx Instructions .Route 09/20/24 04/12/25 Rx Held on 01/30/25. .COMPLEX #90 tabs Instructions: elevated liver function tests levothyroxine 100 mcg tablet 100 mcg PO DAILY #90 tabs 10/23/24 04/12/25 Rx lisinopril 20 mg tablet 20 mg PO BID #180 tabs 01/30/25 04/12/25 Rx carvedilol 3.125 mg tablet See Rx Instructions .Route 04/01/25 04/12/25 Rx .COMPLEX #180 tabs Sleep Procedure A full night polysomnogram using the [employer] multi-channel system recorded the standard physiologic parameters including EEG, EOG, submentalis EMG, anterior tibialis EMG, EKG, body position, nasal and oral airflow using nasal pressure sensor and thermistor. Respiratory parameters of chest and abdominal movements were recorded with Respiratory Inductance Plethysmography belts. Oxygen saturation was recorded by pulse oximetry. Video monitoring was also performed. Sleep stages, periodic limb movements, and EEG arousals were scored in 30 second epochs according to the criteria of the AASM Scoring Manual. The Apnea-Hypopnea Index was calculated using [facility] guidelines for definition of hypopnea while scoring respiratory events. She did not meet criteria for a split night study, so this was conducted as a full [facility] polysomnogram. Sleep Architecture The total recording time was 410.3 minutes. The total sleep time was 332.5 minutes. Sleep latency was 9.6 minutes. REM latency was 93.0 minutes. Sleep efficiency was 81.0%. The patient had 24 awakenings for an awakening index of 4.3. Wake after sleep onset time was 68.0 minutes. The patient spent 32.0 minutes, 9.6% of total sleep time in Stage N1. The patient spent 204.5 minutes, 61.5% in Stage N2. The patient spent 42.0 minutes, 12.6% in Stage N3. The patient spent 54.0 minutes, 16.2% in Stage REM sleep. Respiratory Analysis The patient had 22 hypopneas, no obstructive apneas, no mixed apneas, and no central apneas for an overall Apnea Hypopnea Index of 4.0 (p>4%) and an Apnea Hypopnea Index of 6.1 (p>3%). The REM Apnea Hypopnea Index was 17.8. The NREM Apnea Hypopnea Index was 2.2. The patient had a Central Apnea Hypopnea Index of 0. The supine apnea-hypopnea index was 14.1, nonsupine AHI was 0. There were no Respiratory Effort Related Arousals. The Respiratory Disturbance Index is 6.1 events per hour. There was no evidence of Brad-Rouse Respirations. Arousals There were 110 total arousals for an arousal index of 19.8. There were 76 spontaneous arousals for an index of 13.7. There were 8 arousals due to respiratory events for an index of 1.4. There were 11 arousals due to periodic limb movements for an index of 2.0. There were 13 arousals due to isolated limb movements for an index of 2.3. Periodic Limb Movements The patient had 60 isolated limb movements with an index of 10.8. The patient had 40 periodic limb movements with an index of 7.2. Patient had a total of 100 limb movements with a total limb movement index of 18.0. Oximetry Data The patient had an average oxygen saturation of 94.0% in sleep with a minimum oxygen saturation of 86% and a maximum oxygen saturation of 98%. The patient had 22 oxygen desaturations that were 4% or greater resulting in an Oxygen Desaturation Index of 4.0. The patient spent 0.7 minutes, 0.2% of total sleep time with an oxygen saturation below 88%. Snoring Profile Snoring was mild to moderate. Cardiac Profile The EKG showed normal sinus rhythm, average pulse rate of 54 bpm with a minimum pulse of rate of 47 bpm and a maximum pulse rate of 91 bpm. No arrhythmias noted. EEG Profile Unremarkable, no evidence of seizures. Assessment and Plan Assessment and Plan (1) Obstructive sleep apnea: Code(s): G47.33 - Obstructive sleep apnea (adult) (pediatric) Status: Acute Assessment and Plan: This basic nocturnal polysomnogram on 04/04/2025 shows mild obstructive sleep apnea with an apnea hypopnea Index of 6.1 (p>3%) with desaturation 86% and moderate snoring. Events ere worse in the supine position, supine AHI was 14.4. She has hypertension and with this medical comorbidity she is a candidate for treatment either with PAP therapy or an oral appliance. I recommend that this patient be prescribed Resmed AirSense 11 AutoPAP 5-15 cm H2O, CPAP mask/filters/tubing and humidifier chamber. This should be used with all episodes of sleep. Compliance should be reviewed within 31-90 days of starting therapy for usage greater than 4 hours per night greater than 70% of the nights. The patient should be asked about symptoms such as excessive daytime sleepiness, quality of sleep, decreased nocturia, increased mental functioning such as memory, mood, and concentration. If she does not have a satisfactory response to APAP, she should have a full night CPAP titration. She reports frequently grinding her teeth at night. Bruxism was not seen in this study,, however this can be difficult to assess on polysomnograms at times. Treating obstructive sleep apnea can reduce bruxism. (2) Restless leg syndrome: Code(s): G25.81 - Restless legs syndrome Status: Acute Assessment and Plan: Her history indicates that she frequently has uncomfortable feelings in her legs. This suggest restless legs syndrome. She does not have excessive kicking at night. Restless legs syndrome can make it difficult to fall asleep and stay asleep. Ferritin level is indicated to exclude iron deficiency anemia as a contributing factor. Ferritin should be 75 ng/mL or greater. If ferritin is below this, iron supplementation should be given to achieve ferritin of 75 ng/mL. There are nonpharmacologic methods to treat limb movements including daily exercise, stretching calf muscles before bed, avoiding excessive amounts of caffeine and alcohol, vitamin B supplementation, magnesium lotion massaged into legs before bed, and use of a weighted blanket. Pharmacologic therapy is very effective for restless legs syndrome and limb movements during sleep and may include [id number] voltage-gated calcium channel ligands such as gabapentin which is preferable to dopaminergic agents which can have augmentation. Data The data obtained during this sleep study is adequate for interpretation. Certification This sleep study has been reviewed by a board certified sleep medicine physician.
[2025-05-09 14:07] VITALS: BMI 28.3
== END 2025-04-05 06:36 | disposition home or self-care (01) ==
PROVIDERS: PCP Family Medicine; Visit Provider Student in an Organized Health Care Education/Training Program
DX: G47.33 Obstructive sleep apnea (adult) (pediatric) (principal); G25.81 Restless legs syndrome
CPT/HCPCS: 95810

== ENCOUNTER 2025-04-12 14:10 | Outpatient (CLI) | payer BC, SELFPAY ==
--- NOTE | ~2025-04-12 | US_ITS ---
LEFT LOWER EXTREMITY VENOUS DUPLEX Clinical History: M79.89 - Other specified soft tissue disorders COMPARISON: None TECHNIQUE: Grayscale, color, duplex/spectral Doppler sonography left leg FINDINGS: Left leg common femoral, femoral, popliteal, and calf veins compressible and color Doppler patent. Normal augmentation with distal compression. No internal echoes. IMPRESSION: 1. No left leg DVT. Reviewed, dictated and finalized at location R. CAL COLLECTIONS SPECIALIST IMPRESSION: 1. No left leg DVT.
== END 2025-04-12 14:11 | disposition home or self-care (01) ==
LOC: GOSHIMG 14:11
PROVIDERS: PCP Family Medicine; Visit Provider Student in an Organized Health Care Education/Training Program
DX: M79.89 Other specified soft tissue disorders (principal); R20.0 Anesthesia of skin; R20.2 Paresthesia of skin
CPT/HCPCS: 93971